=== PATIENT | male | born 1955 | race Caucasian/White ===

== ENCOUNTER → 2024-12-09 07:16 | Outpatient (REF) | payer MEDICARE, SELFPAY | LOC: RAD 07:16 | PROVIDERS: ATTENDING PHYSICIAN Internal Medicine Critical Care Medicine | DX: J84.9 Interstitial pulmonary disease, unspecified (principal) | CPT/HCPCS: 71046 ==

== ENCOUNTER → 2025-03-31 10:41 | Outpatient (REF) | payer MEDICARE, SELFPAY | LOC: RAD 10:41 | PROVIDERS: ATTENDING PHYSICIAN Family Medicine; FAMILY PHYSICIAN Family Medicine | DX: N18.31 Chronic kidney disease, stage 3a (principal); R39.9 Unspecified symptoms and signs involving the genitourinary system | CPT/HCPCS: 76770 ==